=== PATIENT | female | born 1950 | race African-American/Black ===

== ENCOUNTER 2020-06-19 14:04 | Inpatient (IN) | payer MEDICARE, MEDICAID ==
[~2020-06-19] VITALS: Ht 160 cm; Wt 99.8 kg
[2020-06-19 14:13] VITALS: BP 74/47
--- NOTE | 2020-06-19 14:24 | Emergency Room Report ---
History of Present Illness General Chief Complaint: Abdominal Pain Source: Patient, EMS Present Illness HPI Patient is a 70-year-old female brought in by ambulance for increased abdominal pain. Patient reports having onset of symptoms approximate 1-1/2 days ago. Patient had recently been seen by dentist and was started on Naprosyn. Reports having bright red blood per rectum. Previous history of diverticulosis. Denies taking any anticoagulants. States she had blood transfusion approximately 6 months ago prior history of diabetes, hypertension, arthritis. Reports having pain to the lower abdomen as well as to the back of her neck. States she is usually hospitalized at [facility]. Denies any diarrhea. Denies anticoagulant use. Allergies: Coded Allergies: ASPIRIN (Verified Allergy, Unknown, 06/19/20) COVID-19 Screening Contact w/high risk pt: No Experienced COVID-19 symptoms?: No COVID-19 Testing performed RESIDUE FURNACE OPERATOR: No Patient History Past Medical History: see triage record Reviewed Nursing Documentation: PMH: Agreed; PSxH: Agreed Nursing Documentation-PMH Past Medical History: No History, Except For Hx Hypertension: Yes Review of Systems All Other Systems: negative except mentioned in HPI Physical Exam Vital Signs Date Time Temp Pulse Resp B/P (MAP) Pulse Ox O2 Delivery O2 Flow Rate FiO2 06/19/20 14:00 98.2 110 74/47 (56) 99 Room Air 06/19/20 14:13 21 Sp02 EP Interpretation: reviewed, normal General Appearance: normal inspection, well appearing, no apparent distress, alert, GCS 15, obese Head: atraumatic ENT: normal ENT inspection, hearing grossly normal, normal voice Neck: normal inspection, full range of motion, supple, no bony tend Respiratory: normal inspection, lungs clear, normal breath sounds, no respiratory distress, no retraction, no wheezing Cardiovascular #1: no edema, tachycardia Gastrointestinal: normal inspection, normal bowel sounds, non tender, soft, no guarding, no hernia Genitourinary: no CVA tenderness Musculoskeletal: normal inspection, back normal, normal range of motion Neurologic: alert, motor strength/tone normal, battery assembler dry cell III-XII nml as tested, oriented x3, responsive, speech normal, normal inspection Psychiatric: normal inspection, judgement/insight normal, mood/affect normal Medical Decision Making Diagnostic Impression: Primary Impression: Anemia Additional Impressions: GI bleed Diverticulosis ER Course Patient presented for rectal bleeding. Differential diagnosis include was not limited to anemia, coagulopathy, diverticular bleed, among others. Because of complexity of patient's case laboratory tests and imaging studies were ordered.Patient's laboratory testing showed some evidence of anemia with hemoglobin 7.9. Patient started on IV fluids as well as given Pepcid. Patient's insurance was unable to arrange transfer to patient's preferred facility. She was given pain medications.Patient was discussed with Dr. Valencia for admission due to capitated hospitalist. Labs Test 06/19/20 15:07 06/19/20 16:30 Prothrombin Time 11.1 SEC (9.30-11.50) Prothromb Time International Ratio 1.0 (0.9-1.1) Activated Partial Thromboplast Time 20 SEC (23-33) Troponin I 0.033 ng/mL (0.000-0.056) White Blood Count 12.2 K/UL (4.8-10.8) Red Blood Count 2.63 M/UL (4.20-5.40) Hemoglobin 7.8 G/DL (12.0-16.0) Hematocrit 24.4 % (37.0-47.0) Mean Corpuscular Volume 93 FL (80-99) Mean Corpuscular Hemoglobin 29.6 PG (27.0-31.0) Mean Corpuscular Hemoglobin Concent 31.9 G/DL (32.0-36.0) Red Cell Distribution Width 18.3 % (11.6-14.8) Platelet Count 268 K/UL (150-450) Mean Platelet Volume 6.2 FL (6.5-10.1) Neutrophils (%) (Auto) % (45.0-75.0) Lymphocytes (%) (Auto) % (20.0-45.0) Monocytes (%) (Auto) % (1.0-10.0) Eosinophils (%) (Auto) % (0.0-3.0) Basophils (%) (Auto) % (0.0-2.0) EKG Diagnostic Results Rate: normal Rhythm: NSR ST Segments: other - No ST depression Last Vital Signs Date Time Temp Pulse Resp B/P (MAP) Pulse Ox O2 Delivery O2 Flow Rate FiO2 06/19/20 14:13 110 21 Room Air 06/19/20 14:13 98.2 74/47 99 Status: improved Disposition: ADMITTED INPATIENT Condition: Stable Piero Robin MD Jun 19, 2020 14:24
[2020-06-19] MEDS ORDERED: Morphine Sulfate 2mg/ml Inj(IV/IM USE ONLY) IVP ONE ×2 (14:30→20:15)
--- NOTE | 2020-06-19 14:45 | NUR ---
ED Nurse Note: Pt was brought in by ambulance from home d/t abdominal pain accompanied by bloody stool and "clots" for 2 days. Pt is AOx4, calm and cooperative to care, breathing even and unlabored, pt was placed on bed and gown; BP's on 131/102, notified ermd. will continue to monitor pt.
--- NOTE | 2020-06-19 15:18 | Diagnostic Imaging Report ---
EXAM: XR Chest, 1 View CLINICAL HISTORY: ABD PAIN TECHNIQUE: Frontal view of the chest. COMPARISON: None FINDINGS: Hardware: None. Lungs/pleura: Lower lung opacities which may represent atelectasis versus pneumonia with possible small left pleural effusion. Heart/mediastinum: Normal. No cardiomegaly. Soft tissues: Unremarkable. Bones: No acute fracture. Degenerative changes of the acromioclavicular joints. Upper abdomen: Normal. IMPRESSION: Lower lung opacities which may represent atelectasis versus pneumonia with possible small left pleural effusion.
--- NOTE | 2020-06-19 15:20 | NUR ---
ED Nurse Note: unable to draw blood from established iv site, called lab for blood.
[2020-06-19] MEDS ORDERED: FUROSEMIDE20 M1 ORAL (15:44)
[2020-06-19] MEDS ORDERED: CIPROFLOXACIN250 MG PO (15:44)
[2020-06-19] MEDS ORDERED: LISINOPRIL20 MG ORAL (15:44)
[2020-06-19] MEDS ORDERED: BACTRIM DS TAB1 EAC1 ORAL (15:44)
[2020-06-19] MEDS ORDERED: IBUPROFEN600 M1 ORAL (15:44)
[2020-06-19] MEDS ORDERED: MULTIVITAMINS1 EAC2 ORAL (15:44)
[2020-06-19] MEDS ORDERED: LOSARTAN POTASS25 MG ORAL (15:44)
[2020-06-19] MEDS ORDERED: JANUVIA100 MG ORAL (15:44)
[2020-06-19] MEDS ORDERED: CRESTOR10 M1 ORAL (15:44)
[2020-06-19] MEDS ORDERED: AMOXICILLIN500 MG ORAL (15:44)
[2020-06-19] MEDS ORDERED: NAPROXEN500 M1 ORAL (15:44)
[2020-06-19 16:43] LABS: HEMATOCRIT 24.4 % (37.0-47.0); HEMOGLOBIN 7.8 G/DL (12.0-16.0); MEAN CORPUSCULAR VOLUME 93 FL (80-99); PLATELET COUNT 268 K/UL (150-450); RED BLOOD COUNT 2.63 M/UL (4.20-5.40); RED CELL DISTRIBUTION WIDTH 18.3 % (11.6-14.8); WHITE BLOOD COUNT 12.2 K/UL (4.8-10.8)
[2020-06-19 16:55] LABS: CALCIUM 8.6 MG/DL (8.5-10.1); CREATININE 1.1 MG/DL (0.55-1.30); POTASSIUM 5.8 MMOL/L (3.5-5.1)
[2020-06-19 17:00] LABS: ALBUMIN 3.1 G/DL (3.4-5.0); ALBUMIN/GLOBULIN RATIO 0.9 (1.0-2.7); BILIRUBIN,TOTAL 0.2 MG/DL (0.2-1.0)
--- NOTE | 2020-06-19 17:35 | NUR ---
ED Nurse Note: Pt unable to provide urine sample at this time, consent for blood transfusion signed.
--- NOTE | 2020-06-19 18:34 | NUR ---
ED Nurse Note: second pink top sent to lab
--- NOTE | 2020-06-19 19:16 | NUR ---
ED Nurse Note: hand off given to DAPHNE Ramirez for continuity of care.
[2020-06-19 21:00] VITALS: BP 90/78
--- NOTE | 2020-06-19 21:02 | NUR ---
ED Nurse Note: prbcs INFUSING PER ORDER, VSS, WILL CONTINUE TO MONITOR CLOSELY
--- NOTE | 2020-06-19 21:20 | NUR ---
ED Nurse Note: Pt denies any adverse reaction to blood transfusing, rate increased, will continue to closely monitor
[2020-06-19] MEDS: Sodium Polystyrene Sulfonate 15gm Powder ORAL SCH ×2 (21:45→23:58)
[2020-06-19] MEDS ORDERED: Piperacillin/Tazobactam 3.375 GM in NS 110 ML IVPB SCH (22:00)
--- NOTE | 2020-06-19 22:30 | NUR ---
NURSE NOTES: RECEIVED REPORT FROM DAPHNE FLOR FROM ED. ADMITTED PT FROM ER TO ROOM 202-1. PT ALERT/ORIENTED X4, ABLE TO MAKE NEEDS KNOWN. NO RESP DISTRESS NOTED. RIGHT UPPER ARM IV IN PLACE & PATENT. CONTINUE ON BLOOD TRANSFUSION ORDER, NO A/R NOTED.BODY CHECK & BELONGING LIST DONE. ORIENTED PT TO ROOM & UNIT. BED IN LOW POSITION & LOCKED. SIDE RAILS UP X2. CALL LIGHT WITH IN REACH. BED ALARM ON.
--- NOTE | 2020-06-19 22:40 | NUR ---
NURSE NOTES: CALLED DR. ALFORD FOR CLARIFICATION OF ADMITTING ORDERS.
--- NOTE | 2020-06-19 22:40 | NUR ---
TRANSFER TO FLOOR: Patient transferred to as ordered, per Dr Valencia. Report given to DAPHNE Garza. Belongings and medications given to . Family and or S/O informed of transfer.
[2020-06-19] MEDS: NovoLOG Insulin Flexpen SUBQ SCH (23:00)
[2020-06-19] MEDS: Pantoprazole Inj IVP SCH (23:47)
[2020-06-20] VITALS: BP 111/63
[2020-06-20] MEDS ORDERED: Sodium Polystyrene Sulfonate 15gm Powder ORAL ONE
--- NOTE | 2020-06-20 00:45 | NUR ---
NURSE NOTES: BLOOD TRANSFUSION COMPLETED, NO A/R NOTED.
--- NOTE | 2020-06-20 01:00 | NUR ---
NURSE NOTES: DR. RIVERO ELECTRIC BLASTING CAP ASSEMBLER FOR DR. ALFORD CALLED BACK NO NEW ORDERED AT THIS TIME
[2020-06-20] MEDS: Morphine Sulfate 2mg/ml Inj(IV/IM USE ONLY) IVP PRN ×4 (01:05→20:42)
[2020-06-20] MEDS: D5 1/2NS 1,000 ML IV SCH ×2 (01:11→10:36)
[2020-06-20] MEDS: Piperacillin/Tazobactam 3.375 GM in NS 110 ML IVPB SCH ×3 (02:12→17:12)
[2020-06-20 04:00] VITALS: BP 122/60
[2020-06-20] MEDS ORDERED: Piperacillin/Tazobactam 3.375 GM in NS 110 ML IVPB SCH (06:00)
[2020-06-20] MEDS: NovoLOG Insulin Flexpen SUBQ SCH ×4 (06:21→21:00)
--- NOTE | 2020-06-20 07:24 | NUR ---
NURSE NOTES: Received report from Kayla/RN. Pt in bed, alert and oriented X4, able to make needs know. On room air, no distress or SOB noted. Bed in lowest position and locked. Call light within reach, encouraged to use it when needed. Side rails up X2. Will continue plan of care.
--- NOTE | 2020-06-20 07:43 | NUR ---
NURSE HAND-OFF REPORT: Important Events on Shift:[ADMITED FROM ED/ GI BLEED] Patient Status: [STABLE] Diet: [CLEAR LIQUID] Pending Orders: [] Pending Results/Labs:[] Pending MD notification:[] Latest Vital Signs: Temperature 98.0 , Pulse 91 , B/P 122 /60 , Respiratory Rate 20 , O2 SAT 96 , Room Air, O2 Flow Rate . Vital Sign Comment: [] EKG Rhythm: Sinus Rhythm Rhythm change?: N MD Notified?: - MD Response: Latest Rob Fall Score: 35 Fall Risk: Medium Risk Safety Measures: Call light Within Reach, Bed Alarm Zone 1, Side Rails Side Rails x2, Bed position Low and Locked. Fall Precautions: Yellow Socks Yellow Gown Door Sign Patient Fall Education Report given to [DAPHNE JACOBO].
[2020-06-20 08:00] VITALS: BP 118/61
[2020-06-20] MEDS: Losartan 25mg tab ORAL SCH (08:53)
[2020-06-20] MEDS: Pantoprazole Inj IVP SCH ×2 (08:53→20:42)
--- NOTE | 2020-06-20 09:00 | History and Physical Report ---
DATE OF ADMISSION: 06/19/2020 CHIEF COMPLAINT: GI bleed. HISTORY OF PRESENT ILLNESS: The patient is a 70-year-old female. She has a history of hypertensive heart disease, congestive heart failure. She has a prior history of diverticulosis. She has a prior history of GI bleed approximately 5 years ago that was apparently due to diverticulosis. At that time, she was offered surgery but declined. On evaluation in the emergency room, she was noted to have a hemoglobin of 7.8. She is status post one unit of packed red blood cells. The patient has noted intermittent bleeding when wiping as well as "clots." She denies any melena. She has denies any abdominal pain. The patient has been taking Naprosyn on a daily basis for her arthritis. PAST MEDICAL HISTORY: As above. PAST SURGICAL HISTORY: None. CURRENT MEDICATIONS: Reconciled and reviewed. ALLERGIES: Include aspirin. FAMILY HISTORY: Noncontributory. SOCIAL HISTORY: There is no known history of tobacco, ethanol, or drugs. REVIEW OF SYSTEMS: GENERAL: No fevers or chills. HEENT: No headaches or visual changes. CARDIOPULMONARY: No chest pain or shortness of breath. GASTROINTESTINAL: Positive bright red blood per rectum and clots. No melena. GENITOURINARY: No urgency or frequency. MUSCULOSKELETAL: No joint pain or swelling. NEUROLOGIC: No evidence of seizures. PHYSICAL EXAMINATION: VITAL SIGNS: Temperature 98, pulse 88, respirations 20, and blood pressure 122/60. GENERAL: The patient is well-developed, no apparent distress. HEART: Regular rate and rhythm. LUNGS: Clear. ABDOMEN: Soft, nontender, nondistended. EXTREMITIES: Without clubbing, cyanosis, or edema. LABORATORY DATA: Sodium 140, potassium 5.8. White count 12, hemoglobin 7.8. PTT was 20. ASSESSMENT: This is a 70-year-old female admitted with complaints of rectal bleeding. She has a history of CHF, chronic pain, osteoarthritis, diverticulosis. PLAN: 1. Monitor serial CBCs. Keep hemoglobin greater than 7.5. 2. Kayexalate for hyperkalemia. 3. Gentle hydration. 4. Clear liquid diet. 5. GI consultation is currently pending. 6. Continue IV proton pump inhibitor. Kendrick Valencia M.D. DR: Deidre JOB#: [id number] CC:
[2020-06-20 09:37] LABS: HEMATOCRIT 23.7 % (37.0-47.0); HEMOGLOBIN 7.9 G/DL (12.0-16.0); MEAN CORPUSCULAR VOLUME 89 FL (80-99); PLATELET COUNT 251 K/UL (150-450); RED BLOOD COUNT 2.67 M/UL (4.20-5.40); RED CELL DISTRIBUTION WIDTH 17.9 % (11.6-14.8); WHITE BLOOD COUNT 9.9 K/UL (4.8-10.8)
[2020-06-20 09:59] LABS: ALBUMIN 2.8 G/DL (3.4-5.0); ALBUMIN/GLOBULIN RATIO 0.9 (1.0-2.7); BILIRUBIN,TOTAL 0.2 MG/DL (0.2-1.0); CALCIUM 7.9 MG/DL (8.5-10.1); CREATININE 1.1 MG/DL (0.55-1.30); POTASSIUM 4.5 MMOL/L (3.5-5.1)
--- NOTE | 2020-06-20 11:35 | General Progress Note ---
Subjective ROS Limited/Unobtainable: Yes Allergies: Coded Allergies: ASPIRIN (Verified Allergy, Unknown, 06/19/20) Objective Last 24 Hour Vital Signs Date Time Temp Pulse Resp B/P (MAP) Pulse Ox O2 Delivery O2 Flow Rate FiO2 06/20/20 09:00 Room Air 06/20/20 08:53 118/61 06/20/20 08:00 97.8 87 20 118/61 (80) 95 06/20/20 08:00 79 06/20/20 04:00 91 06/20/20 04:00 98.0 88 20 122/60 (80) 96 06/20/20 00:14 Room Air 06/20/20 00:00 92 06/20/20 00:00 97.0 87 20 111/63 (79) 100 06/19/20 22:40 98.2 82 21 90/78 99 Room Air 06/19/20 21:00 98.2 06/19/20 21:00 98.0 82 21 90/78 99 Room Air 06/19/20 15:46 98.2 06/19/20 14:13 110 21 Room Air 06/19/20 14:13 98.2 74/47 99 Room Air 06/19/20 14:00 98.2 110 137/121 (126) 99 Room Air Laboratory Tests 06/19/20 15:07: Prothrombin Time 11.1, Prothromb Time International Ratio 1.0, Activated Partial Thromboplast Time 20L, Troponin I 0.033 06/19/20 16:30: White Blood Count 12.2H, Red Blood Count 2.63L, Hemoglobin 7.8L, Hematocrit 24.4L, Mean Corpuscular Volume 93, Mean Corpuscular Hemoglobin 29.6, Mean Corpuscular Hemoglobin Concent 31.9L, Red Cell Distribution Width 18.3H, Platelet Count 268, Mean Platelet Volume 6.2L, Neutrophils (%) (Auto) , Lymphocytes (%) (Auto) , Monocytes (%) (Auto) , Eosinophils (%) (Auto) , Basophils (%) (Auto) , Differential Total Cells Counted 100, Neutrophils % (Manual) 65, Lymphocytes % (Manual) 27, Monocytes % (Manual) 6, Eosinophils % (Manual) 0, Basophils % (Manual) 1, Band Neutrophils 1, Platelet Estimate Adequate, Platelet Morphology Normal, Polychromasia 1+, Anisocytosis 1+, Sodium Level 140, Potassium Level 5.8H, Chloride Level 110H, Carbon Dioxide Level 23, Anion Gap 7, Blood Urea Nitrogen 27H, Creatinine 1.1, Estimat Glomerular Filtration Rate 59.8, Glucose Level 103, Calcium Level 8.6, Total Bilirubin 0.2, Aspartate Amino Transf (AST/SGOT) 16, Alanine Aminotransferase (ALT/SGPT) 17, Alkaline Phosphatase 68, Total Protein 6.4, Albumin 3.1L, Globulin 3.3, Albumin/Globulin Ratio 0.9L, Lipase 408H 06/20/20 06:04: POC Whole Blood Glucose 122H 06/20/20 08:45: Troponin I 0.028, White Blood Count 9.9, Red Blood Count 2.67L, Hemoglobin 7.9L, Hematocrit 23.7L, Mean Corpuscular Volume 89, Mean Corpuscular Hemoglobin 29.5, Mean Corpuscular Hemoglobin Concent 33.2, Red Cell Distribution Width 17.9H, Platelet Count 251, Mean Platelet Volume 6.2L, Neutrophils (%) (Auto) , Lymphocytes (%) (Auto) , Monocytes (%) (Auto) , Eosinophils (%) (Auto) , Basophils (%) (Auto) , Differential Total Cells Counted 100, Neutrophils % (Manual) 50, Lymphocytes % (Manual) 43, Monocytes % (Manual) 4, Eosinophils % (Manual) 3, Basophils % (Manual) 0, Band Neutrophils 0, Platelet Estimate Adequate, Platelet Morphology Normal, Anisocytosis 1+, Sodium Level 139, Potassium Level 4.5, Chloride Level 107, Carbon Dioxide Level 25, Anion Gap 7, Blood Urea Nitrogen 21H, Creatinine 1.1, Estimat Glomerular Filtration Rate 59.8, Glucose Level 128H, Calcium Level 7.9L, Total Bilirubin 0.2, Aspartate Amino Transf (AST/SGOT) 16, Alanine Aminotransferase (ALT/SGPT) 19, Alkaline Phosphatase 63, Total Protein 5.9L, Albumin 2.8L, Globulin 3.1, Albumin/Globulin Ratio 0.9L, Pro-B-Type Natriuretic Peptide [Pending] Height (Feet): 5 Height (Inches): 3.00 Weight (Pounds): 220 General Appearance: alert EENT: PERRL/EOMI Neck: supple Cardiovascular: normal rate Respiratory/Chest: lungs clear Abdomen: normal bowel sounds, non tender, soft Extremities: non-tender Assessment/Plan Problem List: (1) Diverticulosis ICD Codes: K57.90 - Diverticulosis of intestine, part unspecified, without perf oration or abscess without bleeding SNOMED: 498116916 (2) Anemia ICD Codes: D64.9 - Anemia, unspecified SNOMED: 473454520 (3) GI bleed ICD Codes: K92.2 - Gastrointestinal hemorrhage, unspecified SNOMED: 73475564 Assessment/Plan: per patient bleeding has stoped and she has had recent colonoscopy refusing repeat colonoscopy at this time repeat labs advance diet to full liquid Konrad Connors MD Jun 20, 2020 11:35
[2020-06-20 12:00] VITALS: BP 104/50
[2020-06-20 16:00] VITALS: BP 95/54
--- NOTE | 2020-06-20 16:03 | NUR ---
CASE MANAGEMENT:REVIEW BIBA FROM HOME CC: ABDOMINAL PAIN X2 DAYS. BLOOD CLOTS NOTED IN STOOL SI: LGIB. ANEMIA 98.3 110 90/78 99% ON RA WBC+12.2 H/H-7.8/24.4 K+5.8 IS: IV MORPHINE IV PEPCID KAYEXALATE PO CXR TRANSFUSE 1 UNIT PRBC'S : TO TELEMETRY UNIT DCP: FROM HOME
--- NOTE | 2020-06-20 19:10 | NUR ---
NURSE NOTES: Report received from DAPHNE Mcdonald. Patient is in bed awake alert and oriented. No SOB or distress at this time. Call light and bedside table within reach. Bed at lowest position locked with side rails up. Per nurse Tamara, patient refused colonoscopy in AM. Will continue with plan of care.
--- NOTE | 2020-06-20 19:23 | NUR ---
NURSE HAND-OFF REPORT: Important Events on Shift:No bleeding during day shift Patient Status: Stable Diet: Full liquid diet Pending Orders: Pending Results/Labs: Pending MD notification: Latest Vital Signs: Temperature 97.7 , Pulse 84 , B/P 95 /54 , Respiratory Rate 20 , O2 SAT 95 , Room Air, O2 Flow Rate . Vital Sign Comment: Stable EKG Rhythm: Sinus Rhythm Rhythm change?: N MD Notified?: - MD Response: Latest Rob Fall Score: 35 Fall Risk: Medium Risk Safety Measures: Call light Within Reach, Bed Alarm Zone 1, Side Rails Side Rails x2, Bed position Low and Locked. Fall Precautions: Yellow Socks Yellow Gown Door Sign Patient Fall Education Report given to Sherlyn/DAPHNE.
[2020-06-20 20:00] VITALS: BP 98/45
[2020-06-21] VITALS: BP 94/55
[2020-06-21] MEDS: Piperacillin/Tazobactam 3.375 GM in NS 110 ML IVPB SCH ×3 (01:47→17:48)
--- NOTE | 2020-06-21 02:47 | Cardiology Progress Note ---
Subjective DATE OF SERVICE: Jun 20, 2020 No signs new bleeding. 2D Echo: normal LVEF; Mod aortic insuff. BNP 158 Objective Last 24 Hour Vital Signs Date Time Temp Pulse Resp B/P (MAP) Pulse Ox O2 Delivery O2 Flow Rate FiO2 06/21/20 00:00 89 06/21/20 00:00 97.9 84 22 94/55 (68) 96 06/20/20 21:00 Room Air 06/20/20 20:00 97.9 85 20 98/45 (62) 94 06/20/20 20:00 88 06/20/20 16:00 97.7 85 20 95/54 (68) 95 06/20/20 16:00 84 06/20/20 12:00 97.9 81 20 104/50 (68) 96 06/20/20 12:00 87 06/20/20 09:00 Room Air 06/20/20 08:53 118/61 06/20/20 08:00 97.8 87 20 118/61 (80) 95 06/20/20 08:00 79 06/20/20 04:00 91 06/20/20 04:00 98.0 88 20 122/60 (80) 96 ROS: unchanged from 06/19/20 HEENT: normal ENT inspection RHYTHM: NSR, PACs LUNGS: lungs clear bilaterally CARDIAC: regular rhythm, normal S1 and S2 ABDOMEN: normal bowel sounds, non tender, soft, no organomegaly EXTREMITIES: normal range of motion, non-tender, No edema Laboratory Tests Test 06/20/20 06:04 06/20/20 08:45 06/20/20 16:02 POC Whole Blood Glucose 122 MG/DL (74-106) H 110 MG/DL (74-106) H White Blood Count 9.9 K/UL (4.8-10.8) Red Blood Count 2.67 M/UL (4.20-5.40) L Hemoglobin 7.9 G/DL (12.0-16.0) L Hematocrit 23.7 % (37.0-47.0) L Mean Corpuscular Volume 89 FL (80-99) Mean Corpuscular Hemoglobin 29.5 PG (27.0-31.0) Mean Corpuscular Hemoglobin Concent 33.2 G/DL (32.0-36.0) Red Cell Distribution Width 17.9 % (11.6-14.8) H Platelet Count 251 K/UL (150-450) Mean Platelet Volume 6.2 FL (6.5-10.1) L Neutrophils (%) (Auto) % (45.0-75.0) Lymphocytes (%) (Auto) % (20.0-45.0) Monocytes (%) (Auto) % (1.0-10.0) Eosinophils (%) (Auto) % (0.0-3.0) Basophils (%) (Auto) % (0.0-2.0) Differential Total Cells Counted 100 Neutrophils % (Manual) 50 % (45-75) Lymphocytes % (Manual) 43 % (20-45) Monocytes % (Manual) 4 % (1-10) Eosinophils % (Manual) 3 % (0-3) Basophils % (Manual) 0 % (0-2) Band Neutrophils 0 % (0-8) Platelet Estimate Adequate Platelet Morphology Normal Anisocytosis 1+ Sodium Level 139 MMOL/L (136-145) Potassium Level 4.5 MMOL/L (3.5-5.1) Chloride Level 107 MMOL/L (98-107) Carbon Dioxide Level 25 MMOL/L (21-32) Anion Gap 7 mmol/L (5-15) Blood Urea Nitrogen 21 mg/dL (7-18) H Creatinine 1.1 MG/DL (0.55-1.30) Estimat Glomerular Filtration Rate 59.8 mL/min (>60) Glucose Level 128 MG/DL (74-106) H Calcium Level 7.9 MG/DL (8.5-10.1) L Total Bilirubin 0.2 MG/DL (0.2-1.0) Aspartate Amino Transf (AST/SGOT) 16 U/L (15-37) Alanine Aminotransferase (ALT/SGPT) 19 U/L (12-78) Alkaline Phosphatase 63 U/L (46-116) Troponin I 0.028 ng/mL (0.000-0.056) Pro-B-Type Natriuretic Peptide 158.3 pg/mL (0-125) H Total Protein 5.9 G/DL (6.4-8.2) L Albumin 2.8 G/DL (3.4-5.0) L Globulin 3.1 g/dL Albumin/Globulin Ratio 0.9 (1.0-2.7) L Assessment/Plan Assessment/Plan GI bleed Hx diverticulosis Anemia - s/p PRBC tx Hypertension/HHD Chronic diastolic CHF Deg aortic insuff NIDDM Monitor Hb Adv diet if no sx's bleeding Insulin SS Cautious use of losartan with low range BP Chong Vigil MD Jun 21, 2020 02:47
[2020-06-21 04:00] VITALS: BP 101/50
[2020-06-21] MEDS: D5 1/2NS 1,000 ML IV SCH ×2 (05:27→14:00)
[2020-06-21] MEDS: NovoLOG Insulin Flexpen SUBQ SCH ×4 (06:30→20:22)
--- NOTE | 2020-06-21 07:22 | NUR ---
NURSE HAND-OFF REPORT: Important Events on Shift:Stable during this time. No active bleeding noted. Patient Status: Stable alert and oriented. Diet: Full liquids Pending Orders: Pending Results/Labs: Pending MD notification: Latest Vital Signs: Temperature 97.6 , Pulse 92 , B/P 101 /50 , Respiratory Rate 20 , O2 SAT 96 , Room Air, O2 Flow Rate . Vital Sign Comment: EKG Rhythm: Sinus Rhythm Rhythm change?: N MD Notified?: - MD Response: Latest Rob Fall Score: 35 Fall Risk: Medium Risk Safety Measures: Call light Within Reach, Bed Alarm Zone 1, Side Rails Side Rails x2, Bed position Low and Locked. Fall Precautions: Yellow Socks Yellow Gown Door Sign Patient Fall Education Report given to DAPHNE Post.
--- NOTE | 2020-06-21 07:40 | NUR ---
NURSE NOTES: Patient seen in bed in low fowlers asleep with no acute signs of distress. Patient was receiving IV fluids at 75cc/hr. The patients bed was in the lowest position, locked, side rails x2, bed alarm set to zone 1 and call light within reach.
[2020-06-21 08:00] VITALS: BP 140/65
--- NOTE | 2020-06-21 08:22 | NUR ---
CASE MANAGEMENT:REVIEW 06/21/20 SI: GIB. ANEMIA. DIVERTICULOSIS 97.9 84 22 94/55 96% ON RA LABS CURRENTLY PENDING IS: IV ZOSYN Q8HRS IV@75/HR IV PROTONIX Q12 JANUVIA PO QD MVI PO QD COZAAR PO QD IV MORPHINE Q4HRS PRN PAIN : TELEMETRY STATUS DCP: FROM HOME
[2020-06-21 08:34] LABS: HEMATOCRIT 22.5 % (37.0-47.0); HEMOGLOBIN 7.4 G/DL (12.0-16.0); MEAN CORPUSCULAR VOLUME 88 FL (80-99); PLATELET COUNT 259 K/UL (150-450); RED BLOOD COUNT 2.54 M/UL (4.20-5.40); RED CELL DISTRIBUTION WIDTH 17.3 % (11.6-14.8); WHITE BLOOD COUNT 9.1 K/UL (4.8-10.8)
[2020-06-21 08:41] LABS: CALCIUM 7.7 MG/DL (8.5-10.1); CREATININE 1.1 MG/DL (0.55-1.30); POTASSIUM 3.8 MMOL/L (3.5-5.1)
--- NOTE | 2020-06-21 09:15 | General Progress Note ---
Subjective ROS Limited/Unobtainable: No Constitutional: Reports: malaise, weakness HEENT: Reports: no symptoms Cardiovascular: Reports: no symptoms Respiratory: Reports: no symptoms Gastrointestinal/Abdominal: Reports: no symptoms Genitourinary: Reports: no symptoms Neurologic/Psychiatric: Reports: no symptoms Endocrine: Reports: no symptoms Hematologic/Lymphatic: Reports: no symptoms Allergies: Coded Allergies: ASPIRIN (Verified Allergy, Unknown, 06/19/20) All Systems: reviewed and negative except above Subjective stable. no complaints. no bleeding. GI noted. h/h lower today. no chest pain or dizziness Objective Last 24 Hour Vital Signs Date Time Temp Pulse Resp B/P (MAP) Pulse Ox O2 Delivery O2 Flow Rate FiO2 06/21/20 04:00 92 06/21/20 04:00 97.6 80 20 101/50 (67) 96 06/21/20 00:00 89 06/21/20 00:00 97.9 84 22 94/55 (68) 96 06/20/20 21:00 Room Air 06/20/20 20:00 97.9 85 20 98/45 (62) 94 06/20/20 20:00 88 06/20/20 16:00 97.7 85 20 95/54 (68) 95 06/20/20 16:00 84 06/20/20 12:00 97.9 81 20 104/50 (68) 96 06/20/20 12:00 87 Intake and Output 06/20/20 06/21/20 19:02 07:02 Intake Total 995.0 ml 360 ml Output Total 500 ml Balance 495.0 ml 360 ml Intake Oral 360 ml 360 ml IV Total 635.0 ml Output Urine Total 500 ml # Voids 3 # Bowel Movements 1 1 Laboratory Tests 06/20/20 16:02: POC Whole Blood Glucose 110H 06/21/20 05:40: White Blood Count 9.1, Red Blood Count 2.54L, Hemoglobin 7.4L, Hematocrit 22.5L, Mean Corpuscular Volume 88, Mean Corpuscular Hemoglobin 29.3, Mean Corpuscular Hemoglobin Concent 33.1, Red Cell Distribution Width 17.3H, Platelet Count 259, Mean Platelet Volume 5.6L, Neutrophils (%) (Auto) , Lymphocytes (%) (Auto) , Monocytes (%) (Auto) , Eosinophils (%) (Auto) , Basophils (%) (Auto) , Neutrophils % (Manual) [Pending], Lymphocytes % (Manual) [Pending], Platelet Estimate [Pending], Platelet Morphology [Pending], Sodium Level 139, Potassium Level 3.8, Chloride Level 108H, Carbon Dioxide Level 27, Anion Gap 4L, Blood Urea Nitrogen 13, Creatinine 1.1, Estimat Glomerular Filtration Rate 59.8, Glucose Level 111H, Calcium Level 7.7L 06/21/20 06:00: POC Whole Blood Glucose 123H Height (Feet): 5 Height (Inches): 3.00 Weight (Pounds): 220 General Appearance: WD/WN, alert EENT: PERRL/EOMI, normal ENT inspection Neck: non-tender, normal alignment, supple Cardiovascular: normal peripheral pulses, normal rate, regular rhythm Respiratory/Chest: chest wall non-tender, lungs clear, normal breath sounds Edema: no edema noted Arm (L), no edema noted Arm (R), no edema noted Leg (L), no edema noted Leg (R) Neurologic: equity trader II-XII grossly normal, alert, oriented x 3, responsive Assessment/Plan Problem List: (1) Anemia ICD Codes: D64.9 - Anemia, unspecified SNOMED: 816241757 (2) Diverticulosis ICD Codes: K57.90 - Diverticulosis of intestine, part unspecified, without perforation or abscess without bleeding SNOMED: 111388866 (3) GI bleed ICD Codes: K92.2 - Gastrointestinal hemorrhage, unspecified SNOMED: 49074429 Status: stable Assessment/Plan: transfuse PPI rx pain rx ivf GI follow up pt refused endosocpy can dc if no signs or symptoms of bleeding Kendrick Valencia MD Jun 21, 2020 09:15
[2020-06-21] MEDS: Losartan 25mg tab ORAL SCH (09:21)
[2020-06-21] MEDS: Pantoprazole Inj IVP SCH ×2 (09:23→20:22)
[2020-06-21] MEDS: Morphine Sulfate 2mg/ml Inj(IV/IM USE ONLY) IVP PRN ×2 (09:24→20:22)
--- NOTE | 2020-06-21 11:13 | General Progress Note ---
Subjective Allergies: Coded Allergies: ASPIRIN (Verified Allergy, Unknown, 06/19/20) Subjective above noted no complaints today says has not seen blood in her stools yesterday or today still declines EGD / Colon Says had these evaluations at [facility] 8 mo ago told had diverticular bleeding Objective Last 24 Hour Vital Signs Date Time Temp Pulse Resp B/P (MAP) Pulse Ox O2 Delivery O2 Flow Rate FiO2 06/21/20 09:21 140/65 06/21/20 09:00 Room Air 06/21/20 08:00 99.1 91 20 140/65 (90) 94 06/21/20 08:00 91 06/21/20 04:00 92 06/21/20 04:00 97.6 80 20 101/50 (67) 96 06/21/20 00:00 89 06/21/20 00:00 97.9 84 22 94/55 (68) 96 06/20/20 21:00 Room Air 06/20/20 20:00 97.9 85 20 98/45 (62) 94 06/20/20 20:00 88 06/20/20 16:00 97.7 85 20 95/54 (68) 95 06/20/20 16:00 84 06/20/20 12:00 97.9 81 20 104/50 (68) 96 06/20/20 12:00 87 Intake and Output 06/20/20 06/21/20 19:00 07:00 Intake Total 995.0 ml 360 ml Output Total 500 ml Balance 495.0 ml 360 ml Intake Oral 360 ml 360 ml IV Total 635.0 ml Output Urine Total 500 ml # Voids 3 # Bowel Movements 1 1 Laboratory Tests 06/20/20 16:02: POC Whole Blood Glucose 110H 06/21/20 05:40: White Blood Count 9.1, Red Blood Count 2.54L, Hemoglobin 7.4L, Hematocrit 22.5L, Mean Corpuscular Volume 88, Mean Corpuscular Hemoglobin 29.3, Mean Corpuscular Hemoglobin Concent 33.1, Red Cell Distribution Width 17.3H, Platelet Count 259, Mean Platelet Volume 5.6L, Neutrophils (%) (Auto) , Lymphocytes (%) (Auto) , Monocytes (%) (Auto) , Eosinophils (%) (Auto) , Basophils (%) (Auto) , Differential Total Cells Counted 100, Neutrophils % (Manual) 60, Lymphocytes % (Manual) 33, Monocytes % (Manual) 7, Eosinophils % (Manual) 0, Basophils % (Manual) 0, Band Neutrophils 0, Platelet Estimate Adequate, Platelet Morphology Normal, Hypochromasia 1+, Anisocytosis 1+, Sodium Level 139, Potassium Level 3.8, Chloride Level 108H, Carbon Dioxide Level 27, Anion Gap 4L, Blood Urea Nitrogen 13, Creatinine 1.1, Estimat Glomerular Filtration Rate 59.8, Glucose Level 111H, Calcium Level 7.7L 06/21/20 06:00: POC Whole Blood Glucose 123H Height (Feet): 5 Height (Inches): 3.00 Weight (Pounds): 220 Objective WDWN NCAT supple CTA RRR abd soft, obese no edema Assessment/Plan Status: stable Assessment/Plan: Assessment (1) Anemia (2) Diverticulosis (3) GI bleed (4) DM (5) HTN Recommendations - Transfuse to keep Hg> 7.0 - monitor CBC - po as tolerated Keegan Aguirre MD Jun 21, 2020 11:13
[2020-06-21 12:00] VITALS: BP 125/63
[2020-06-21 16:00] VITALS: BP 123/68
[2020-06-21 17:38] LABS: EOSINOPHILS % (AUTO) 2.5 % (0.0-3.0); HEMATOCRIT 26.1 % (37.0-47.0); HEMOGLOBIN 8.9 G/DL (12.0-16.0); LYMPHOCYTES % (AUTO) 35.8 % (20.0-45.0); MEAN CORPUSCULAR VOLUME 88 FL (80-99); MONOCYTES % (AUTO) 6.1 % (1.0-10.0); NEUTROPHILS % (AUTO) 54.5 % (45.0-75.0); PLATELET COUNT 272 K/UL (150-450); RED BLOOD COUNT 2.97 M/UL (4.20-5.40); WHITE BLOOD COUNT 8.9 K/UL (4.8-10.8)
--- NOTE | 2020-06-21 19:37 | NUR ---
NURSE HAND-OFF REPORT: Important Events on Shift:[1 Unit PRBCs] Patient Status: [Stable, AAOx4] Diet: [Full liquid Diet] Pending Orders: [N/A] Pending Results/Labs:[N/A] Pending MD notification:[N/A] Latest Vital Signs: Temperature 99.0 , Pulse 83 , B/P 123 /68 , Respiratory Rate 19 , O2 SAT 94 , Room Air, O2 Flow Rate . Vital Sign Comment: [] EKG Rhythm: Sinus Rhythm Rhythm change?: N MD Notified?: - MD Response: Latest Rob Fall Score: 35 Fall Risk: Medium Risk Safety Measures: Call light Within Reach, Bed Alarm Zone 1, Side Rails Side Rails x2, Bed position Low and Locked. Fall Precautions: Yellow Socks Yellow Gown Door Sign Patient Fall Education Report given to [DAPHNE Pineda].
--- NOTE | 2020-06-21 19:40 | NUR ---
NURSE NOTES: Report received from DAPHNE Post. Patient is awake on bed, alert and oriented x 4. On full liquid diet, instructed and amenable. IV site is on left forearm g-20 running D5 1/2 NS @ 75 cc/hour that is patent and intact. Safety measures are in place, bed in lowest and locked position, side rails up x 2, call light button and bedside table within reach, instructed to call for any assistance needed. Will continue plan of care.
[2020-06-21 21:00] VITALS: BP 138/95
[2020-06-22] VITALS: BP 133/63
--- NOTE | 2020-06-22 00:43 | Cardiology Progress Note ---
Subjective DATE OF SERVICE: Jun 21, 2020 No signs new bleeding. Hemoglobin slightly lower. 2D Echo: normal LVEF; Mod aortic insuff. Glucose normal range on D% 0.45 NS Objective Last 24 Hour Vital Signs Date Time Temp Pulse Resp B/P (MAP) Pulse Ox O2 Delivery O2 Flow Rate FiO2 06/21/20 21:00 Room Air 06/21/20 21:00 98.4 89 24 138/95 (109) 97 06/21/20 20:00 90 06/21/20 16:00 99.0 83 19 123/68 (86) 94 06/21/20 16:00 85 06/21/20 12:00 98.2 85 20 125/63 (83) 96 06/21/20 12:00 84 06/21/20 09:21 140/65 06/21/20 09:00 Room Air 06/21/20 08:00 99.1 91 20 140/65 (90) 94 06/21/20 08:00 91 06/21/20 04:00 92 06/21/20 04:00 97.6 80 20 101/50 (67) 96 ROS: unchanged from 06/19/20 HEENT: normal ENT inspection RHYTHM: NSR, PACs LUNGS: lungs clear bilaterally CARDIAC: regular rhythm, normal S1 and S2 ABDOMEN: normal bowel sounds, non tender, soft, no organomegaly EXTREMITIES: normal range of motion, non-tender, No edema Laboratory Tests Test 06/21/20 05:40 06/21/20 06:00 06/21/20 12:22 06/21/20 17:14 White Blood Count 9.1 K/UL (4.8-10.8) Red Blood Count 2.54 M/UL (4.20-5.40) L Hemoglobin 7.4 G/DL (12.0-16.0) L Hematocrit 22.5 % (37.0-47.0) L Mean Corpuscular Volume 88 FL (80-99) Mean Corpuscular Hemoglobin 29.3 PG (27.0-31.0) Mean Corpuscular Hemoglobin Concent 33.1 G/DL (32.0-36.0) Red Cell Distribution Width 17.3 % (11.6-14.8) H Platelet Count 259 K/UL (150-450) Mean Platelet Volume 5.6 FL (6.5-10.1) L Neutrophils (%) (Auto) % (45.0-75.0) Lymphocytes (%) (Auto) % (20.0-45.0) Monocytes (%) (Auto) % (1.0-10.0) Eosinophils (%) (Auto) % (0.0-3.0) Basophils (%) (Auto) % (0.0-2.0) Differential Total Cells Counted 100 Neutrophils % (Manual) 60 % (45-75) Lymphocytes % (Manual) 33 % (20-45) Monocytes % (Manual) 7 % (1-10) Eosinophils % (Manual) 0 % (0-3) Basophils % (Manual) 0 % (0-2) Band Neutrophils 0 % (0-8) Platelet Estimate Adequate Platelet Morphology Normal Hypochromasia 1+ Anisocytosis 1+ Sodium Level 139 MMOL/L (136-145) Potassium Level 3.8 MMOL/L (3.5-5.1) Chloride Level 108 MMOL/L (98-107) H Carbon Dioxide Level 27 MMOL/L (21-32) Anion Gap 4 mmol/L (5-15) L Blood Urea Nitrogen 13 mg/dL (7-18) Creatinine 1.1 MG/DL (0.55-1.30) Estimat Glomerular Filtration Rate 59.8 mL/min (>60) Glucose Level 111 MG/DL (74-106) H Calcium Level 7.7 MG/DL (8.5-10.1) L POC Whole Blood Glucose 123 MG/DL (74-106) H 119 MG/DL (74-106) H 142 MG/DL (74-106) H Test 06/21/20 17:30 White Blood Count 8.9 K/UL (4.8-10.8) Red Blood Count 2.97 M/UL (4.20-5.40) L Hemoglobin 8.9 G/DL (12.0-16.0) L Hematocrit 26.1 % (37.0-47.0) L Mean Corpuscular Volume 88 FL (80-99) Mean Corpuscular Hemoglobin 29.9 PG (27.0-31.0) Mean Corpuscular Hemoglobin Concent 34.0 G/DL (32.0-36.0) Red Cell Distribution Width 17.0 % (11.6-14.8) H Platelet Count 272 K/UL (150-450) Mean Platelet Volume 6.1 FL (6.5-10.1) L Neutrophils (%) (Auto) 54.5 % (45.0-75.0) Lymphocytes (%) (Auto) 35.8 % (20.0-45.0) Monocytes (%) (Auto) 6.1 % (1.0-10.0) Eosinophils (%) (Auto) 2.5 % (0.0-3.0) Basophils (%) (Auto) 1.0 % (0.0-2.0) Assessment/Plan Assessment/Plan GI bleed Hx diverticulosis Anemia - s/p PRBC tx Hypertension/HHD Chronic diastolic CHF Deg aortic insuff NIDDM Monitor Hb; check iron panel Adv diet if no sx's bleeding Insulin SS; ADELE hawthorne for now. Advance losartan with increasing BP Chong Vigil MD Jun 22, 2020 00:43
[2020-06-22] MEDS: Piperacillin/Tazobactam 3.375 GM in NS 110 ML IVPB SCH ×2 (01:53→10:10)
[2020-06-22] MEDS: D5 1/2NS 1,000 ML IV SCH (01:53)
--- NOTE | 2020-06-22 02:30 | Consultation ---
DATE OF CONSULTATION: 06/19/2020 CARDIOLOGY CONSULT REFERRING PHYSICIAN: Kendrick Valencia M.D. REASON FOR CONSULTATION: Congestive heart failure in the setting of acute GI bleeding. HISTORY OF PRESENT ILLNESS: This 70-year-old female has a history of diverticulosis with recent GI bleed and diagnostic workup at an outside hospital. She presented to the emergency room with a low hemoglobin and shortness of breath. She has had clots and some blood when wiping following a bowel movement. She does not take any blood thinners, but has been on Naprosyn daily for her arthritis. She received a unit of packed red blood cells in the emergency room. PAST MEDICAL HISTORY: Hypertension, diverticulosis, history of congestive heart failure, osteoarthritis, and type 2 diabetes mellitus. MEDICATIONS: Reviewed and reconciled. ALLERGIES: Aspirin. FAMILY HISTORY: Noncontributory. SOCIAL HISTORY: Negative for smoking, alcohol, or substance abuse. REVIEW OF SYSTEMS: No history of exertional chest pain, myocardial infarction, or rheumatic heart disease. No history of irregular heartbeats, abnormal blood clotting, asthma, or thyroid disorder. PHYSICAL EXAMINATION: VITAL SIGNS: Blood pressure 122/60, pulse 88, respirations 20, afebrile. HEENT: Conjunctivae are pink. Oropharynx clear. NECK: Supple. Jugular venous pressure normal. Carotid upstrokes without delay. LUNGS: Clear. CARDIAC: Regular rhythm and rate. Normal S1, S2. There is a 1/4 diastolic murmur at the base. ABDOMEN: Soft, nontender. No hepatomegaly. EXTREMITIES: No edema. LABORATORY DATA: Reviewed. IMPRESSION: 1. Lower GI bleeding. 2. Anemia secondary to bleeding. 3. History of diverticulosis. 4. Hyperkalemia. 5. Hypertensive heart disease. 6. History of chronic diastolic congestive heart failure. 7. Osteoarthritis, on chronic NSAID therapy. 8. Type 2 diabetes mellitus without signs of complications. 9. Hyperkalemia of unknown etiology, possibly due to losartan therapy. PLAN: 1. Kayexalate x1 was given. 2. Hydration. 3. NPO. 4. Serial hemoglobin. 5. Cautious use of losartan. 6. Insulin coverage by sliding scale. Chong Vigil M.D. DR: ADONAY JOB#: [id number] CC:
[2020-06-22 04:00] VITALS: BP 133/70
[2020-06-22] MEDS: NovoLOG Insulin Flexpen SUBQ SCH (06:11)
[2020-06-22] MEDS: Morphine Sulfate 2mg/ml Inj(IV/IM USE ONLY) IVP PRN (06:14)
--- NOTE | 2020-06-22 06:51 | NUR ---
NURSE HAND-OFF REPORT: Important Events on Shift: Patient has been compalining of lower back pain, relived by morhine 2mg/IV was given Patient Status: Patient is awake on bed, paln of care endorsed. Diet: Full liquid diet Pending Orders: none Pending Results/Labs:AM lab result Pending MD notification:none Latest Vital Signs: Temperature 98.4 , Pulse 91 , B/P 133 /70 , Respiratory Rate 20 , O2 SAT 90 , Room Air, O2 Flow Rate . Vital Sign Comment: stable EKG Rhythm: Sinus Rhythm Rhythm change?: N MD Notified?: - MD Response: Latest Rob Fall Score: 45 Fall Risk: High Risk Safety Measures: Call light Within Reach, Bed Alarm Zone 1, Side Rails Side Rails x2, Bed position Low and Locked. Fall Precautions: Yellow Socks Yellow Gown Door Sign Patient Fall Education Report given to DAPHNE Coello.
[2020-06-22 07:13] LABS: BASOPHILS % (AUTO) 0.7 % (0.0-2.0); EOSINOPHILS % (AUTO) 3.4 % (0.0-3.0); HEMATOCRIT 25.2 % (37.0-47.0); HEMOGLOBIN 8.4 G/DL (12.0-16.0); LYMPHOCYTES % (AUTO) 36.8 % (20.0-45.0); MEAN CORPUSCULAR VOLUME 90 FL (80-99); NEUTROPHILS % (AUTO) 52.2 % (45.0-75.0); PLATELET COUNT 276 K/UL (150-450); RED CELL DISTRIBUTION WIDTH 16.4 % (11.6-14.8); WHITE BLOOD COUNT 8.8 K/UL (4.8-10.8)
--- NOTE | 2020-06-22 07:56 | Discharge Summary ---
Discharge Summary Hospital Course Date of Admission Jun 19, 2020 at 18:25 Date of Discharge Admitting Diagnosis lower gi bleeding, chf HPI Deidre Junior is a 70 year old female who was admitted on Jun 19, 2020 at 18:25 for Lower Gastrointestinal Bleeding, Congestive Heart Consultations gi cards Hospital Course pt was admitted with gib. required transfusion x 1. no further bleeding in house. h/h remained stable. refused endocopy. dcd home. asked to follow up with pmd later this week Discharge Discharge Vital Signs Last Vital Signs Date Time Temp Pulse Resp B/P (MAP) Pulse Ox O2 Delivery O2 Flow Rate FiO2 06/22/20 04:00 98.4 85 20 133/70 (91) 90 06/21/20 21:00 Room Air Discharge Disposition Patient was discharged to Kendrick Valencia MD Jun 22, 2020 07:56
[2020-06-22] MEDS ORDERED: PROTONIX40 MG ORAL (07:58)
[2020-06-22 08:00] VITALS: BP 126/83
--- NOTE | 2020-06-22 08:06 | NUR ---
NURSE NOTES: Received patient report from DAPHNE Sanchez. patient is AO x4 awake and able to make needs known. Patient is on room air and dhows no signs of respiratory distress . IV is intact and patent. Running D5 1/2 NS @75 cc/hr. Patient shows no signs of distress or pain at the time. Bed is in the lowest position, call light within reach, deburring machine operator rails up x2. Will continue to monitor.
--- NOTE | 2020-06-22 08:09 | NUR ---
NURSE NOTES: Patient had 2 pauses on monitoring manager, last one was at [address] Valencia. He says proceed with discharge.
[2020-06-22 08:38] LABS: % IRON SATURATION 7 % (15-50); IRON 24 ug/dL (50-175); TOTAL IRON BINDING CAPACITY 362 ug/dL (250-450)
[2020-06-22 08:46] VITALS: BP 126/83
[2020-06-22] MEDS: Pantoprazole Inj IVP SCH (08:46)
[2020-06-22] MEDS: Losartan 25mg tab ORAL SCH (08:46)
[2020-06-22] MEDS ORDERED: D5 1/2NS 1000ml IV ONE (11:14)
--- NOTE | 2020-06-22 11:26 | NUR ---
NURSE NOTES: Patient discharged per Dr. Valencia. Patient shows no signs of distress or pain at the time. IV was taken out, cardiac catheterization technician taken off. Packet sent with patient including prescription. Taxi services called.
--- NOTE | 2020-06-22 11:52 | NUR ---
INSURANCE DC SUMMARY FAXED TO [facility] [phone]
--- NOTE | 2020-06-22 17:52 | General Progress Note ---
Subjective Allergies: Coded Allergies: ASPIRIN (Verified Allergy, Unknown, 06/19/20) Subjective above noted no complaints today says has not seen blood in her stools yesterday or today still declines EGD / Colon Objective Last 24 Hour Vital Signs Date Time Temp Pulse Resp B/P (MAP) Pulse Ox O2 Delivery O2 Flow Rate FiO2 06/22/20 09:00 Room Air 06/22/20 08:46 126/83 06/22/20 08:00 97.1 87 20 126/83 (97) 96 06/22/20 04:00 98.4 85 20 133/70 (91) 90 06/22/20 04:00 91 06/22/20 00:00 98.6 79 24 133/63 (86) 99 06/22/20 00:00 82 06/21/20 21:00 Room Air 06/21/20 21:00 98.4 89 24 138/95 (109) 97 06/21/20 20:00 90 Intake and Output 06/21/20 06/22/20 19:00 07:00 Intake Total 350 ml 700 ml Balance 350 ml 700 ml Intake Oral 350 ml 700 ml # Voids 1 4 # Bowel Movements 1 1 Laboratory Tests 06/22/20 05:42: White Blood Count 8.8, Red Blood Count 2.80L, Hemoglobin 8.4L, Hematocrit 25.2L, Mean Corpuscular Volume 90, Mean Corpuscular Hemoglobin 30.2, Mean Corpuscular Hemoglobin Concent 33.6, Red Cell Distribution Width 16.4H, Platelet Count 276, Mean Platelet Volume 5.5L, Neutrophils (%) (Auto) 52.2, Lymphocytes (%) (Auto) 36.8, Monocytes (%) (Auto) 7.0, Eosinophils (%) (Auto) 3.4H, Basophils (%) (Auto) 0.7, Iron Level 24L, Total Iron Binding Capacity 362, Percent Iron Saturation 7L, Unsaturated Iron Binding 338 Height (Feet): 5 Height (Inches): 3.00 Weight (Pounds): 220 Objective WDWN NCAT supple CTA RRR abd soft, obese no edema Assessment/Plan Status: stable Assessment/Plan: Assessment (1) Anemia (2) Diverticulosis (3) GI bleed (4) DM (5) HTN Recommendations - Transfuse to keep Hg> 7.0 - monitor CBC - po as tolerated - dc planning Keegan Aguirre MD Jun 22, 2020 17:52
--- NOTE | 2020-06-22 18:49 | Cardiology Progress Note ---
Subjective DATE OF SERVICE: Jun 22, 2020 No signs new bleeding. 2D Echo: normal LVEF; Mod aortic insuff. Monitor strips reviewed: Lead not capturing - NOT asystole. Contiguous leads reveal NSR. Objective Last 24 Hour Vital Signs Date Time Temp Pulse Resp B/P (MAP) Pulse Ox O2 Delivery O2 Flow Rate FiO2 06/22/20 09:00 Room Air 06/22/20 08:46 126/83 06/22/20 08:00 97.1 87 20 126/83 (97) 96 06/22/20 04:00 98.4 85 20 133/70 (91) 90 06/22/20 04:00 91 06/22/20 00:00 98.6 79 24 133/63 (86) 99 06/22/20 00:00 82 06/21/20 21:00 Room Air 06/21/20 21:00 98.4 89 24 138/95 (109) 97 06/21/20 20:00 90 ROS: unchanged from 06/19/20 HEENT: normal ENT inspection RHYTHM: NSR, PACs LUNGS: lungs clear bilaterally CARDIAC: regular rhythm, normal S1 and S2 ABDOMEN: normal bowel sounds, non tender, soft, no organomegaly EXTREMITIES: normal range of motion, non-tender, No edema Laboratory Tests Test 06/22/20 05:42 White Blood Count 8.8 K/UL (4.8-10.8) Red Blood Count 2.80 M/UL (4.20-5.40) L Hemoglobin 8.4 G/DL (12.0-16.0) L Hematocrit 25.2 % (37.0-47.0) L Mean Corpuscular Volume 90 FL (80-99) Mean Corpuscular Hemoglobin 30.2 PG (27.0-31.0) Mean Corpuscular Hemoglobin Concent 33.6 G/DL (32.0-36.0) Red Cell Distribution Width 16.4 % (11.6-14.8) H Platelet Count 276 K/UL (150-450) Mean Platelet Volume 5.5 FL (6.5-10.1) L Neutrophils (%) (Auto) 52.2 % (45.0-75.0) Lymphocytes (%) (Auto) 36.8 % (20.0-45.0) Monocytes (%) (Auto) 7.0 % (1.0-10.0) Eosinophils (%) (Auto) 3.4 % (0.0-3.0) H Basophils (%) (Auto) 0.7 % (0.0-2.0) Iron Level 24 ug/dL (50-175) L Total Iron Binding Capacity 362 ug/dL (250-450) Percent Iron Saturation 7 % (15-50) L Unsaturated Iron Binding 338 ug/dL (112-346) Assessment/Plan Assessment/Plan GI bleed Hx diverticulosis Anemia - s/p PRBC tx Hypertension/HHD Chronic diastolic CHF Deg aortic insuff NIDDM Normal sinus rhythm Monitor Hb as outpatient. Diet advanced and tolerated, Restart januvia as outpatient Continue losartan at current dose. Chong Vigil MD Jun 22, 2020 18:49
== END 2020-06-22 11:15 | disposition home or self-care (01) | DRG 378 ==
LOC: EDBD 14:04 → EMR 14:30 → 2E 18:25 → EDBEDREQ 20:56 → 2E 23:29
PROC: 30233N1 Transfusion of Nonautologous Red Blood Cells into Peripheral Vein, Percutaneous Approach (ICD-10-PCS; principal; 2020-06-21)
DX: K57.91 Diverticulosis of intestine, part unspecified, without perforation or abscess with bleeding (principal); D62 Acute posthemorrhagic anemia; I50.32 Chronic diastolic (congestive) heart failure; E87.5 Hyperkalemia; I11.0 Hypertensive heart disease with heart failure; M19.90 Unspecified osteoarthritis, unspecified site; Z87.19 Personal history of other diseases of the digestive system; Z88.6 Allergy status to analgesic agent; E11.9 Type 2 diabetes mellitus without complications; Z79.1 Long term (current) use of non-steroidal anti-inflammatories (NSAID); I35.1 Nonrheumatic aortic (valve) insufficiency
CPT/HCPCS: 36415; 71045; 80048; 80053; 82962; 83540; 83550; 83690; 83880; 84484; 85007; 85025; 85610; 85730; 86850; 86900; 86901; 86920; 93306; 96374; 96375; 96376; 99285; J1815